=== PATIENT | male | born 1965 | race Caucasian/White ===

== ENCOUNTER 2018-03-26 14:04 | Emergency (ER) | payer OTHER ==
[2018-03-26] MEDS: LIDOCAINE 2% (MDV) 20 ML INJ INJ (15:17)
[2018-03-26] MEDS: DIPHTH/TET/ACEL PERTUSS (ADULT) 0.5 ML VIAL IM* (15:18)
== END 2018-03-26 16:27 | disposition home or self-care (01) ==
LOC: FTE 14:04
DX: S61.412A Laceration without foreign body of left hand, initial encounter (principal); F17.210 Nicotine dependence, cigarettes, uncomplicated; X99.1XXA Assault by knife, initial encounter; Z23 Encounter for immunization
CPT/HCPCS: 12001; 73130-LT; 90471; 90715; 99283-25

== ENCOUNTER 2019-02-18 01:34 | Emergency (ER) | payer OTHER ==
[2019-02-18] MEDS: morphine 4 MG/ML VIAL IV (02:42)
[2019-02-18] MEDS: ONDANSETRON 4 MG INJ IV (02:42)
[2019-02-18] MEDS: SOD CHLORIDE 0.9% 1,000 ML IV (02:43)
[2019-02-18 02:44] LABS: ADD MAN DIFF? NO
[2019-02-18 02:45] LABS: WHITE BLOOD COUNT 13.7 10^3/ul (4.8-10.8)
[2019-02-18 02:45] LABS: BASOPHIL # 0.1 10^3/ul (0.0-0.1); BASOPHILS % 0.5 % (0.0-2.0); EOSINOPHILS # 0.1 10^3/ul (0.0-0.5); EOSINOPHILS % 0.4 % (0.0-7.0); HEMATOCRIT 45.1 % (42.0-52.0); HEMOGLOBIN 15.8 g/dl (14.0-18.0); LYMPHOCYTES # 1.5 10^3/ul (0.8-2.9); LYMPHOCYTES % 11.2 % (15.0-51.0); MEAN CORPUSCULAR HEMOGLOBIN 31.1 pg (29.0-33.0); MEAN CORPUSCULAR VOLUME 88.8 fl (82.0-101.0); MEAN PLATELET VOLUME 9.4 fl (7.4-10.4); MONOCYTE # 0.6 10^3/ul (0.3-0.9); MONOCYTES % 4.5 % (0.0-11.0); NEUTROPHIL # 11.4 10^3/ul (1.6-7.5); PLATELET COUNT 319 10^3/UL (140-415); RED BLOOD COUNT 5.08 10^6/ul (4.70-6.10); RED CELL DISTRIBUTION WIDTH 12.2 % (11.5-14.5)
[2019-02-18 02:49] LABS: ADD UMIC YES; UR ASCORBIC ACID NEGATIVE (NEGATIVE); UR BILIRUBIN (Dip) NEGATIVE (NEGATIVE); UR BLOOD (Dip) 1+ mg/dL (NEGATIVE); UR CLARITY CLEAR (CLEAR); UR COLOR YELLOW (YELLOW); UR GLUCOSE (Dip) NEGATIVE (NEGATIVE); UR KETONES (Dip) NEGATIVE (NEGATIVE); UR LEUKOCYTE ESTERASE (Dip) NEGATIVE Leu/ul (NEGATIVE); UR MUCUS FEW /HPF (NONE SEEN); UR NITRITE (Dip) NEGATIVE (NEGATIVE); UR RBC 1 /HPF (0-5); UR SPECIFIC GRAVITY (Dip) 1.015 (1.003-1.030); UR TOTAL PROTEIN (Dip) NEGATIVE (NEGATIVE); UR UROBILINOGEN (Dip) NEGATIVE (NEGATIVE); UR WBC 1 /HPF (0-5)
[2019-02-18 03:01] LABS: INR 0.89; PROTIME 12.2 Sec (11.9-14.9)
[2019-02-18 03:02] LABS: ALANINE AMINOTRANSFERASE 54 IU/L (13-69); ALBUMIN 4.7 g/dl (3.3-4.9); ALKALINE PHOSPHATASE 113 IU/L (42-121); ANION GAP 10 (5-13); ASPARTATE AMINO TRANSFERASE 33 IU/L (15-46); BILIRUBIN,INDIRECT 0.7 mg/dl (0-1.1); BILIRUBIN,TOTAL 0.7 mg/dl (0.2-1.3); BLOOD UREA NITROGEN 22 mg/dl (7-20); CALCIUM 9.7 mg/dl (8.4-10.2); CARBON DIOXIDE 26 mmol/L (21-31); CHLORIDE 107 mmol/L (97-110); CREATININE 1.24 mg/dl (0.61-1.24); Estimated GFR > 60 mL/min (>60); GLUCOSE 136 mg/dl (70-220); LIPASE 84 U/L (23-300); PARTIAL THROMBOPLASTIN TIME 26.2 Sec (23.0-35.0); POTASSIUM 4.9 mmol/L (3.5-5.1); SODIUM 143 mmol/L (135-144); TOTAL PROTEIN 8.3 g/dl (6.1-8.1)
[2019-02-18] MEDS: KETOROLAC 15 MG INJ IV (04:28)
[2019-02-18] MEDS: IODIXANOL LOCM 100 ML BTL (04:34)
[2019-02-18] MEDS: SOD CHLORIDE 0.9% 100 ML (04:34)
== END 2019-02-18 05:21 | disposition home or self-care (01) ==
LOC: FTE 01:34
DX: N20.0 Calculus of kidney (principal); I10 Essential (primary) hypertension; F17.210 Nicotine dependence, cigarettes, uncomplicated
CPT/HCPCS: 36415; 71045; 74177; 80053; 81001; 83690; 85025; 85610; 85730; 96374; 96375; 99285-25

== ENCOUNTER 2019-03-27 12:27 | Observation (INO) | payer OTHER ==
[2019-03-27 13:25] LABS: ADD MAN DIFF? NO
[2019-03-27 13:38] LABS: BASOPHIL # 0.1 10^3/ul (0.0-0.1); BASOPHILS % 0.6 % (0.0-2.0); EOSINOPHILS # 0.3 10^3/ul (0.0-0.5); EOSINOPHILS % 2.4 % (0.0-7.0); HEMATOCRIT 44.9 % (42.0-52.0); LYMPHOCYTES # 2.3 10^3/ul (0.8-2.9); LYMPHOCYTES % 19.2 % (15.0-51.0); MEAN CORPUSCULAR HEMOGLOBIN 32.2 pg (29.0-33.0); MEAN CORPUSCULAR HGB CONC 35.6 g/dl (32.0-37.0); MEAN CORPUSCULAR VOLUME 90.3 fl (82.0-101.0); MEAN PLATELET VOLUME 9.9 fl (7.4-10.4); MONOCYTE # 0.6 10^3/ul (0.3-0.9); MONOCYTES % 4.7 % (0.0-11.0); NEUTROPHIL # 8.6 10^3/ul (1.6-7.5); NEUTROPHILS % 72.7 % (39.0-77.0); PLATELET COUNT 321 10^3/UL (140-415); RED BLOOD COUNT 4.97 10^6/ul (4.70-6.10); RED CELL DISTRIBUTION WIDTH 12.1 % (11.5-14.5)
[2019-03-27 13:38] LABS: WHITE BLOOD COUNT 11.8 10^3/ul (4.8-10.8)
[2019-03-27 13:58] LABS: ALANINE AMINOTRANSFERASE 33 IU/L (13-69); ALBUMIN/GLOBULIN RATIO 1.14; ALKALINE PHOSPHATASE 95 IU/L (42-121); ANION GAP 11 (5-13); ASPARTATE AMINO TRANSFERASE 28 IU/L (15-46); BILIRUBIN,INDIRECT 0.4 mg/dl (0-1.1); BILIRUBIN,TOTAL 0.4 mg/dl (0.2-1.3); BLOOD UREA NITROGEN 29 mg/dl (7-20); CALCIUM 10.1 mg/dl (8.4-10.2); CARBON DIOXIDE 24 mmol/L (21-31); CHLORIDE 102 mmol/L (97-110); CREATININE 1.34 mg/dl (0.61-1.24); Estimated GFR 56 mL/min (>60); GLUCOSE 172 mg/dl (70-220); LIPASE 153 U/L (23-300); POTASSIUM 3.9 mmol/L (3.5-5.1); SODIUM 137 mmol/L (135-144); TOTAL PROTEIN 7.5 g/dl (6.1-8.1)
[2019-03-27 13:59] LABS: INR 1.03; PROTIME 13.6 Sec (11.9-14.9); PT RATIO 1.1
[2019-03-27 14:00] LABS: PARTIAL THROMBOPLASTIN TIME 29.9 Sec (23.0-35.0)
[2019-03-27 14:08] LABS: TROPONIN-I < 0.012 ng/ml (0.000-0.120)
[2019-03-27] MEDS: SOD CHLORIDE 0.9% 1,000 ML IV ×2 (14:09→18:38)
[2019-03-27] MEDS: ONDANSETRON 4 MG INJ IV ×2 (14:09→14:49)
[2019-03-27] MEDS: morphine 4 MG/ML VIAL IV (14:09)
[2019-03-27] MEDS: SOD CHLORIDE 0.9% 100 ML (14:22)
[2019-03-27] MEDS: IOHEXOL 300MG/ML 150 ML BTL (14:22)
[2019-03-27] MEDS: FAMOTIDINE 20 MG TAB PO ×2 (14:49→21:25)
[2019-03-27] MEDS: LIDOCAINE/MYLANTA 40 ML BTL PO (14:49)
[2019-03-27] MEDS ORDERED: ONDANSETRON 4 MG INJ IV ×2 (16:00→18:00)
[2019-03-27] MEDS ORDERED: ACETAMINOPHEN 325 MG TAB PO ×2 (16:00→18:00)
[2019-03-27] MEDS: ASPIRIN 81 MG TAB PO (16:20)
[2019-03-27] MEDS ORDERED: IBUPROFEN 600 MG TAB PO (18:00)
[2019-03-27] MEDS ORDERED: NACL 0.9% 3 ML SYG IV (18:00)
[2019-03-27] MEDS ORDERED: MAGNESIUM HYDROXIDE 30ML CUP PO (18:00)
[2019-03-27] MEDS ORDERED: LABETALOL HCL 20MG INJ IV (18:00)
[2019-03-27] MEDS ORDERED: BISACODYL (EC) 5 MG TAB PO (18:00)
[2019-03-27] MEDS ORDERED: DOCUSATE SODIUM 100 MG CAP PO (18:00)
[2019-03-27] MEDS: NICOTINE (14 MG/24 HR) PATCH TRANSDERM (19:31)
[2019-03-27] MEDS: morphine 2 MG INJ IV (19:35)
[2019-03-27 19:44] LABS: CREATINE KINASE 142 IU/L (23-200)
[2019-03-27 19:55] LABS: CK INDEX 0.3; CK-MB 0.41 ng/ml (0.0-2.4); TROPONIN-I < 0.012 ng/ml (0.000-0.120)
[2019-03-27] MEDS: ATORVASTATIN 20 MG TAB PO (21:25)
[2019-03-27] MEDS: METOPROLOL (XL) 25 MG TAB PO (21:26)
[2019-03-28] MEDS: morphine 2 MG INJ IV ×2 (00:27→10:01)
[2019-03-28 01:01] LABS: ADD UMIC NO; UR ASCORBIC ACID NEGATIVE (NEGATIVE); UR BILIRUBIN (Dip) NEGATIVE (NEGATIVE); UR BLOOD (Dip) NEGATIVE (NEGATIVE); UR CLARITY CLEAR (CLEAR); UR COLOR YELLOW (YELLOW); UR GLUCOSE (Dip) NEGATIVE (NEGATIVE); UR KETONES (Dip) NEGATIVE (NEGATIVE); UR LEUKOCYTE ESTERASE (Dip) NEGATIVE Leu/ul (NEGATIVE); UR NITRITE (Dip) NEGATIVE (NEGATIVE); UR SPECIFIC GRAVITY (Dip) 1.023 (1.003-1.030); UR TOTAL PROTEIN (Dip) NEGATIVE (NEGATIVE); UR UROBILINOGEN (Dip) NEGATIVE (NEGATIVE)
[2019-03-28 01:14] LABS: CREATINE KINASE 110 IU/L (23-200)
[2019-03-28 01:27] LABS: CK INDEX 0.6; CK-MB 0.61 ng/ml (0.0-2.4); TROPONIN-I < 0.012 ng/ml (0.000-0.120)
[2019-03-28 02:11] LABS: AMPHETAMINE/METHAMPHETAMINE POSITIVE (NEGATIVE); BARBITURATES NEGATIVE (NEGATIVE); BENZODIAZEPINES NEGATIVE (NEGATIVE); CANNABINOIDS NEGATIVE (NEGATIVE); COCAINE NEGATIVE (NEGATIVE); OPIATES POSITIVE (NEGATIVE)
[2019-03-28 05:43] LABS: ADD MAN DIFF? NO
[2019-03-28 05:48] LABS: BASOPHIL # 0.1 10^3/ul (0.0-0.1); BASOPHILS % 0.7 % (0.0-2.0); EOSINOPHILS # 0.3 10^3/ul (0.0-0.5); EOSINOPHILS % 2.5 % (0.0-7.0); HEMATOCRIT 43.1 % (42.0-52.0); HEMOGLOBIN 14.9 g/dl (14.0-18.0); LYMPHOCYTES % 18.2 % (15.0-51.0); MEAN CORPUSCULAR HEMOGLOBIN 31.7 pg (29.0-33.0); MEAN CORPUSCULAR HGB CONC 34.6 g/dl (32.0-37.0); MEAN CORPUSCULAR VOLUME 91.7 fl (82.0-101.0); MEAN PLATELET VOLUME 9.9 fl (7.4-10.4); MONOCYTE # 0.8 10^3/ul (0.3-0.9); MONOCYTES % 7.2 % (0.0-11.0); NEUTROPHIL # 7.6 10^3/ul (1.6-7.5); NEUTROPHILS % 70.9 % (39.0-77.0); PLATELET COUNT 318 10^3/UL (140-415); RED CELL DISTRIBUTION WIDTH 12.3 % (11.5-14.5)
[2019-03-28 05:48] LABS: WHITE BLOOD COUNT 10.7 10^3/ul (4.8-10.8)
[2019-03-28 06:06] LABS: ANION GAP 8 (5-13); BLOOD UREA NITROGEN 27 mg/dl (7-20); CARBON DIOXIDE 24 mmol/L (21-31); CHLORIDE 104 mmol/L (97-110); CREATININE 1.11 mg/dl (0.61-1.24); GLUCOSE 109 mg/dl (70-220); POTASSIUM 4.6 mmol/L (3.5-5.1); SODIUM 136 mmol/L (135-144)
[2019-03-28 06:07] LABS: ALANINE AMINOTRANSFERASE 29 IU/L (13-69); ALBUMIN 3.4 g/dl (3.3-4.9); ALBUMIN/GLOBULIN RATIO 1.25; ALKALINE PHOSPHATASE 80 IU/L (42-121); ASPARTATE AMINO TRANSFERASE 23 IU/L (15-46); BILIRUBIN,INDIRECT 0.4 mg/dl (0-1.1); BILIRUBIN,TOTAL 0.4 mg/dl (0.2-1.3); CALCIUM 9.3 mg/dl (8.4-10.2); CHOLESTEROL 140 mg/dl (100-200); Estimated GFR > 60 mL/min (>60); HDL CHOLESTEROL 20 mg/dl (28-71); PHOSPHORUS 2.9 mg/dl (2.5-4.9); TOTAL PROTEIN 6.1 g/dl (6.1-8.1)
[2019-03-28 06:18] LABS: TROPONIN-I < 0.012 ng/ml (0.000-0.120)
[2019-03-28 06:41] LABS: LDL CHOLESTEROL,CALCULATED 7 mg/dl; TRIGLYCERIDES 564 mg/dl (0-149)
[2019-03-28 07:21] LABS: HEMOGLOBIN A1C 5.3 % (0-5.9)
[2019-03-28] MEDS: LISINOPRIL 20 MG TAB PO (08:12)
[2019-03-28] MEDS: FAMOTIDINE 20 MG TAB PO (08:12)
[2019-03-28] MEDS: ASPIRIN (EC) 81 MG TAB PO (08:12)
[2019-03-28] MEDS: AMLODIPINE 10 MG TAB PO (08:12)
[2019-03-28] MEDS: ENOXAPARIN 40 MG/0.4 ML SYG SC (08:25)
[2019-03-28] MEDS: REGADENOSON 0.4 MG/5 ML SYG (14:30)
== END 2019-03-28 18:30 | disposition home or self-care (01) ==
LOC: E/R 12:27 → 6WM 15:59
DX: R07.89 Other chest pain (principal); M17.12 Unilateral primary osteoarthritis, left knee; I10 Essential (primary) hypertension; Z72.0 Tobacco use; K21.9 Gastro-esophageal reflux disease without esophagitis; N20.0 Calculus of kidney; F43.10 Post-traumatic stress disorder, unspecified; E78.5 Hyperlipidemia, unspecified; R00.0 Tachycardia, unspecified
CPT/HCPCS: 71045; 74177; 78452; 80053; 80061; 80307; 81003; 82550; 82553; 83036; 83690; 83735; 84100; 84443; 84484; 85025; 85610; 85730; 93005; 93017; 93306; 96374; 96375; 96376; 99217; 99285-25; G0378